=== PATIENT | male | born 2005 | race Caucasian/White ===

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

== ENCOUNTER 2024-01-23 20:26 | Emergency (ER) | payer OTHER ==
[~2024-01-23] VITALS: Ht 172.7 cm; Wt 64.9 kg
[2024-01-23 20:48] VITALS: BP 125/71; PULSE 90; RESP 18; TEMP 98.6; O2SAT 100
[2024-01-23 21:26] VITALS: TEMP 98.2
[2024-01-23] MEDS ORDERED: AMOX1TAB8 PO (21:41)
[2024-01-23] MEDS: BACITRACIN OINT 500 UNITS/GM PKT TP ONE (21:47)
== END 2024-01-23 22:10 | disposition home or self-care (01) ==
LOC: MED 20:26
DX: S61.250A Open bite of right index finger without damage to nail, initial encounter (principal); L03.011 Cellulitis of right finger; J45.909 Unspecified asthma, uncomplicated; W55.01XA Bitten by cat, initial encounter; Y93.89 Activity, other specified; Y92.89 Other specified places as the place of occurrence of the external cause; Y99.8 Other external cause status
CPT/HCPCS: 99283